=== PATIENT | female | born 1990 | race Caucasian/White ===

== ENCOUNTER 2021-05-16 19:00 | Emergency (ER) | payer MEDICAID ==
[~2021-05-16] VITALS: Ht 160 cm; Wt 108.1 kg
[~2021-05-16 19:00] MED LIST: FERROUS SULFATE; VERTIGO MED
[2021-05-16 19:19] VITALS: BP 125/87
--- NOTE | 2021-05-16 21:33 | NUR ---
PATIENT STATED THAT SHE NO LONGER WANTED TO BE SEEN, PT FOUND IN ROOM 35 WITH SIGNIFICANT OTHER.
== END 2021-05-16 21:28 | disposition left against medical advice (07) ==
LOC: ED 19:30
DX: R10.9 Unspecified abdominal pain (principal); R11.0 Nausea; Z53.21 Procedure and treatment not carried out due to patient leaving prior to being seen by health care provider

== ENCOUNTER 2021-06-16 19:49 | Emergency (ER) | payer SELFPAY ==
[~2021-06-16] VITALS: Ht 160 cm; Wt 105.9 kg
--- NOTE | 2021-06-16 20:03 | NUR ---
PT AMBULATORY TO ROOM 22 W/ C/O SINUS PRESSURE AND N/V X 1 DAY. PT STATES SHE HAS VOMITED 3 TIMES TODAY. PT ALSO HAS C/O L EAR PAIN PT BELIEVES SHE HAS AN EAR INFECTION. PT STATES SHE GETS TESTED FOR COVID WEEKLY AT WORK AND CAME BACK NEGATIVE TODAY BUT WAS TOLD BY HER WORK TO COME TO ED FOR FURTHER R/O. PT RESTING ON GURNEY. NADN. MONITORS APPLIED. VSS. CALL LIGHT IN REACH. PT PROVIDED W/ WARM BLANKET.
[2021-06-16] MEDS ORDERED: ONDANSETRON 2MG/ML, 2ML ONE ×2 (20:28→21:38)
[2021-06-16] MEDS ORDERED: ONDANSETRON 2MG/ML, 2ML IVPush ONE ×2 (20:30→22:00)
[2021-06-16] MEDS ORDERED: SODIUM CHLORIDE 0.9% 1,000ML IVBOLUS ONE (20:30)
[2021-06-16 20:34] LABS: BASOPHILS % (AUTO) 1 % (0-1); EOSINOPHILS % (AUTO) 1 % (1-7); LYMPHOCYTES % (AUTO) 28 % (22-44); MEAN CORPUSCULAR HEMOGLOBIN 29.7 pg (27.0-34.8); MEAN CORPUSCULAR HGB CONC 34.5 g/dL (32.4-35.8); MEAN PLATELET VOLUME 8.1 fL (7.4-10.4); MONOCYTES % (AUTO) 6 % (2-9); NEUTROPHILS % (AUTO) 65 % (42-75); PLATELET COUNT 281 x10^3/uL (130-400); RED BLOOD COUNT 4.47 x10^6/uL (3.82-5.3); RED CELL DISTRIBUTION WIDTH 13.3 % (9.6-15.2)
--- NOTE | 2021-06-16 20:36 | NUR ---
PT RESTING ON GURNEY. NADN. KENT.
[2021-06-16] MEDS ORDERED: ACETAMINOPHEN 500 MG TABLET ONE (20:40)
[2021-06-16 20:45] LABS: ALANINE AMINOTRANSFERASE 30 U/L (12-78); ALBUMIN 3.4 g/dL (3.4-5.0); ANION GAP 2 mmol/L (5-15); CALCIUM 8.7 mg/dL (8.5-10.1); CHLORIDE 107 mmol/L (98-107); CREATININE 0.78 mg/dL (0.55-1.02)
[2021-06-16 20:47] LABS: ALKALINE PHOSPHATASE 100 U/L (45-117); BILIRUBIN,TOTAL 0.3 mg/dL (0.2-1.0); TOTAL PROTEIN 7.3 g/dL (6.4-8.2)
--- NOTE | 2021-06-16 20:52 | NUR ---
REPORT GIVEN TO PETER ALONZO.
[2021-06-16] MEDS ORDERED: ACETAMINOPHEN 500 MG TABLET PO ONE (21:00)
[2021-06-16 21:04] LABS: MICROSCOPIC INDICATED
[2021-06-16 21:22] VITALS: BP 101/76
--- NOTE | 2021-06-16 21:25 | NUR ---
PT REFUSED IM PHENERGAN "NO MORE NEEDLES". ERP NOTIFIED.
[2021-06-16] MEDS ORDERED: PROMETHAZINE 25 MG/ML, 1ML IM ONE (21:30)
--- NOTE | 2021-06-16 21:38 | NUR ---
PT PULLED PIV OUT PRIOR TO RECEIVED SECOND DOSE ZOFRAN.
== END 2021-06-16 21:54 | disposition home or self-care (01) ==
LOC: ED 20:15
DX: H66.002 Acute suppurative otitis media without spontaneous rupture of ear drum, left ear (principal); R11.2 Nausea with vomiting, unspecified; R10.30 Lower abdominal pain, unspecified; N18.1 Chronic kidney disease, stage 1; Z90.710 Acquired absence of both cervix and uterus
CPT/HCPCS: 36415; 80053; 81001; 85025; 87086; 96361; 96374; 99283; J2405; J7030